=== PATIENT | female | born 1950 | race Caucasian/White ===

== ENCOUNTER 2023-02-20 07:40 | Outpatient (CLI) | payer MEDICARE ==
--- NOTE | 2023-02-20 14:35 | Ultrasound Report ---
PROCEDURE: Aorta Screening INDICATIONS: POST MENOPAUSAL, FAM HX OF HEART DISEASE TECHNIQUE: Real time scanning was performed of the aorta and iliac arteries, with image documentatio n. COMPARISON: None. FINDINGS: Aorta: Proximal aortic diameter measures 2.3 x 2.3 cm. Mid-aorta measures 2.1 x 2.1 cm. Distal aor tic diameter is 1.8 x 1.7 cm. Iliac arteries: Right common iliac artery measures 1.2 x 1.3 cm. Left common iliac artery measures 1.3 x 1.2 cm. IMPRESSION: No sonographic evidence for abdominal aortic aneurysm. Recommended intervals for follow-up imaging of ectatic aortas and abdominal aortic aneurysms, per ACR consensus guidelines: 2.5-2.9 cm: 5 years 3.0-3.4 cm: 3 years 3.5-3.9 cm: 2 years 4.0-4.4 cm: 1 year 4.5-4.9 cm: 6 months + endovascular referral 5.0-5.5 cm: 3-6 months + endovascular referral Reviewed by: Dirk Galan MD on 02/20/2023 2:33 PM PDT Approved by: Dirk Galan MD on 02/20/2023 2:33 PM PDT Station ID: [id number]
--- NOTE | 2023-02-20 18:14 | DEXA Report ---
PROCEDURE: Dexa Spine and/or Hip INDICATIONS: POST MENOPAUSAL, FAM HX OF HEART DISEASE TECHNIQUE: Dual energy x-ray absorptiometry (DEXA) was performed in the regions detailed below. COMPARISON: None. FINDINGS: Lumbar Spine: Bone Mineral Density 0.979 g/cm/cm,T score -1.7. Osteopenia Left Femoral Neck: Bone Mineral Density 0.911 g/cm/cm, T score -0.9. Normal Left Total Hip: Bone Mineral Density 0.893 g/cm/cm,T score -0.9. Normal (T score greater or equal to -1.0: NORMAL) (T score from -1.1 to -2.4: OSTEOPENIA) (T score less than or equal to -2.5 to: OSTEOPOROSIS) IMPRESSION: Osteopenia Patients with diagnosis of osteoporosis or osteopenia should have regular bone mineral density assess ment. For those eligible for Medicare, routine testing is allowed once every 2 years. Testing frequ ency can be increased for patients who have rapidly progressing disease or for those who are receivin g medical therapy to restore bone mass. Reviewed by: Gera Orosco MD on 02/20/2023 5:12 PM PORFIRIO Approved by: Gera Orosco MD on 02/20/2023 5:12 PM AKDT Station ID: [id number]
== END 2023-02-20 07:41 | disposition home or self-care (01) ==
LOC: DI 07:40
PROVIDERS: ATTEND Nurse Practitioner Family
DX: Z78.0 Asymptomatic menopausal state (principal); Z13.6 Encounter for screening for cardiovascular disorders; Z82.49 Family history of ischemic heart disease and other diseases of the circulatory system; M85.88 Other specified disorders of bone density and structure, other site

== ENCOUNTER 2023-02-20 07:41 | Outpatient (CLI) | payer MEDICARE ==
--- NOTE | 2023-02-25 15:05 | Mammography Report ---
BILATERAL DIGITAL SCREENING MAMMOGRAM 3D/2D: 02/20/2023 CLINICAL: Routine screening. Multiple family members with breast cancer. Comparison is made to exams dated: 12/09/2018 mammogram and 11/29/2019 mammogram - [facility]. Both breasts are heterogeneously dense, which may obscure small masses (category c / 51-75% glandular tissue). No significant masses, calcifications, or other findings are seen in either breast. There has been no significant interval change. IMPRESSION: NEGATIVE There is no mammographic evidence of malignancy. A 1 year screening mammogram is recommended. Based on the Tyrer Cuzick model (a risk assessment model) the patients lifetime risk is 18.0% and he r 10 year risk is 13.6%. According to the ACR, ACS, and NCCN guidelines, an annual breast MRI exam al soha with mammogram is recommended if the patients lifetime risk is 20% or greater. This exam was interpreted at Station ID: [id number]. NOTE: For mammograms, a report in lay terms will be sent to the patient. Approximately 15% of breast malignancies will not be visualized mammographically. In the management of a palpable breast mass, a negative mammogram must not discourage biopsy of a clinically suspicious lesion. Electronically Signed By: Josué whitmore/penrad:02/24/2023 15:05:20 ACR BI-RADS Category 1: Negative 3341F PARENCHYMAL PATTERN: (D) - The breast(s) demonstrate(s) heterogeneously dense fibroglandular mily max. BI-RADS CATEGORY: (1) - 1 Mammogram [id number] 1 year screening LATERALITY: (B)
== END 2023-02-20 07:42 | disposition home or self-care (01) ==
LOC: DI 07:41
PROVIDERS: ATTEND Nurse Practitioner Family
DX: Z12.31 Encounter for screening mammogram for malignant neoplasm of breast (principal); R92.333 Mammographic heterogeneous density, bilateral breasts; Z80.3 Family history of malignant neoplasm of breast

== ENCOUNTER 2023-12-09 09:29 | Day surgery (SDC) | payer MEDICARE ==
--- NOTE | 2023-12-09 06:34 | HISTORY & PHYSICAL EXAMINATION ---
PMH/PSH - Past Medical History Cardiovascular: positive: Hypertension, Atrial fibrillation, Arrhythmia Respiratory: positive: None Neuro: positive: None Endocrine/Autoimmune: positive: None GI: positive: None : positive: None HEENT: positive: None Psych: positive: None Musculoskeletal: positive: Osteoarthritis Derm: positive: None MRSA Hx?: No Social & Family Hx - Social History Smoking Status: Former smoker Meds/Allgy - Home Medications Home Medications: Ambulatory Orders Medication Instructions Recorded Confirmed Apixaban [Eliquis] 5 mg PO DAILY 10/04/21 12/09/23 Metoprolol Succinate [Kapspargo 50 mg PO DAILY 10/04/21 12/09/23 Sprinkle] - Allergies Allergies/Adverse Reactions: Allergies Allergy/AdvReac Type Severity Reaction Status Date / Time Penicillins Allergy Hives Verified 12/09/23 10:04 Impression/Plan - Problem List Problem List: Visit Type: Initial Consult CC: colonoscopy consult. History of Present Illness: 73 year old female referred to my office for screening CS exam. Her last examination was 10 years ago. She has a history of colon poyps. There is no FH of colon cancer. She is on Eliquis for a fib. She denies lower GI symptoms. Her mother had a total colectomy/ileostomy in her 90's due to "colitis". Mallampati Score Class I: The soft palate, tonsils, anterior and posterior pillars, and the entire uvula are easily visible ASA Physical Status Classification System ASA II: A patient with mild systemic disease Allergies: Allergies Reviewed: Done PENICILLIN V POTASSIUM (PENICILLIN V POTASSIUM) (Critical) Social History Reviewed: Done Medications: Meds Reviewed: Done Eliquis 5 mg tablet (apixaban) metoprolol succinate 50 mg tablet extended release 24 hr (metoprolol succinate) triazolam 0.25 mg tablet (triazolam) TAKE 1 TABLET BY MOUTH THE NIGHT BEFORE, AND 1 TABLET ONE HOUR BEFORE APPOINTMENT. NEED RIDE TO AND FROM APPOINTMENT. Problems: Problems Reviewed: Done Encounter for screening for malignant neoplasm of colon (ICD-V76.51) (ICD10- Z12.11) Family history of CVA or stroke (ICD-V17.1) (UFT86-E67.3) Carotid bruit, bilateral (ICD-785.9) (WPM30-P00.89) Establish care or get acquainted visit (ICD-V68.89) (DNC96-Q90.89) Past Medical History: Past Medical History was requested of patient but none was remarked. Past Surgical History: Unremarkable Risk Factors-CCC: Smoked Tobacco Use: Never smoker Smokeless Tobacco Use: Never Alcohol Use: yes Type: wine Drinks per day: 2 Review of Systems General Denies fever, anorexia and weight loss. GI Denies abdominal pain, nausea, vomiting, diarrhea, constipation, change in bowel habits, melena, hematochezia, jaundice, gas/bloating, indig estion/heartburn, dysphagia and odynophagia. Breast Denies left breast lump, right breast lump, nipple discharge, bloody discharge from nipple, breast pain, abnormal mammogram and breast enlargement. CV Denies chest pains, palpitations, syncope and peripheral edema. Resp Denies cough, shortness of breath, hemoptysis, wheezing and pleuritic chest pain. Vascular Denies varicose veins, leg swelling, leg redness, leg coolness, pain in legs with walking, resting leg pain, pain at night in legs and blue toe(s). Denies vaginal discharge, incontinence, dysuria, hematuria, urinary frequency, abnormal vaginal bleeding, pelvic pain and . Wound Denies wound redness, wound discharge, wound pain, opening of wound, purulent discharge and bleeding from wound. Derm Denies suspicious lesions, new skin lesions, changing mole(s), rash, itching and history of skin cancer. Neuro Denies paralysis, paresthesias, seizures and frequent headaches. Psych Denies depression, anxiety, memory loss, suicidal ideation, hallucinations, paranoia, phobia and confusion. Endo Denies cold intolerance, heat intolerance, polydipsia, polyphagia, polyuria and unusual weight change. Heme Denies abnormal bruising, bleeding and enlarged lymph nodes. MS Denies back pain, sciatica and arthritis. Other Denies stoma redness, pain around stoma, discharge from stoma, pain from venous catheter, redness at vascular access site and purulent drainage from vascular access site. Vital Signs: Patient Profile: 73 Years Old Female Height: 62 inches Weight: 212.0 pounds BMI: 38.92 O2 Sat: 98 % on room air Temp: 97.2 degrees F temporal Pulse rate: 70 / minute Resp: 16 per minute BP sittin / 90 Vitals Entered By: Cole Velásquez RN (October 20, 2023 1:59 PM) Problems were reviewed with the patient during this visit. Medications were reviewed with the patient during this visit. Allergies were reviewed with the patient during this visit. Allergies: PENICILLIN V POTASSIUM (PENICILLIN V POTASSIUM) (Critical) Physical Exam General: well developed, well nourished, in no acute distress Head: normocephalic and atraumatic Eyes: PERRLA/EOM intact; sclera clear Ears: Normal hearing Nose: no deformity, discharge, inflammation, or lesions Mouth: no deformity or lesions with good dentition Neck: no masses, thyromegaly, or abnormal cervical nodes Lungs: clear bilaterally to A & P Heart: regular rate and rhythm, S1, S2 without murmurs, rubs, gallops, or clicks Abdomen: bowel sounds positive; abdomen soft and non-tender without masses, organomegaly, or hernias noted Msk: no deformity or scoliosis noted with normal posture and gait Pulses: pulses normal in all 4 extremities Extremities: no clubbing, cyanosis, edema, or deformity noted with normal full range of motion of all joints Neurologic: no focal deficits Skin: intact without lesions or rashes Cervical Nodes: no significant adenopathy Psych: alert and cooperative; normal mood and affect; normal attention span and co ncentration Blood Pressure: Today's BP: 127/90 mmHg Impression & Recommendations: Problem # 1: Encounter for screening for malignant neoplasm of colon (ICD- V76.51) (OIU18-J44.11) Assessment: 1) Screening CS request Recommendation: 1) Colonoscopy under IV sedation Consent: Jamee has been counseled for the procedure, it's indications, risks, benefits and expected outcome as well as alternative therapies. We specifically discussed risks associated with anesthesia and insertion of the endoscope into the large intestine which includes bleeding and injury to the colon which may require surgical intervention. Jamee understands, agrees, and consents to the proposed operative strategy and requests that we proceed with the procedure as outlined in our discussion. Elder Mendenhall MD, [facility] General Surgery Service Orders: Visit Code Hold ([id number]) Other Orders: Visit Code Hold ([id number]) Date: 12/09/23; 10:30 Chart Update: Patient examined, chart reviewed. There are no changes to the patient's clinical status that would preclude proceeding with the scheduled procedure today. Elder Mendenhall MD, [facility] General Surgery Service
[2023-12-09] MEDS: LACTATED RINGERS 1,000 ML IV ONE ×2 (09:40→11:40)
--- NOTE | 2023-12-09 10:37 | ANESTHESIA ---
Pre-Anesthesia VS, & Labs - Diagnosis screening - Procedure colonoscopy Height: 5 ft 2 in Weight (kg): 95.6 kg Body Mass Index: 38.5 BMI Classification: Obese - NPO >8 hours - Is Patient ?: No Home Medications and Allergies Apixaban [Eliquis] 5 mg PO DAILY 10/04/21 Metoprolol Succinate [Kapspargo Sprinkle] 50 mg PO DAILY 10/04/21 Allergies/Adverse Reactions: Allergies Allergy/AdvReac Type Severity Reaction Status Date / Time Penicillins Allergy Hives Verified 12/09/23 10:04 Anes History & Medical History - Anesthetic History Anesthesia Complications: reports: No previous complications Family history of Anesthesia Complications: Denies Family history of Malignant Hyperthermia: Denies - Medical History Cardiovascular: reports: Hypertension, Atrial fibrillation, Arrhythmia Pulmonary: reports: None Gastrointestinal: reports: None Urinary: reports: None Neuro: reports: None Musculoskeletal: reports: Osteoarthritis Endocrine/Autoimmune: reports: None Skin: reports: None Smoking Status: Former smoker - Surgical History General: reports: Cholecystectomy Eyes Ears Nose Throat (EENT): reports: Cataracts Exam General: Alert, Oriented x3, Cooperative Dental: WNL Mouth Openin Fingerbreadth Neck Mobility: Normal Mallampati classification: II Thyromental Distance: 4-6 cm Respiratory: Lungs clear Cardiovascular: Regular rate Plan Anesthesia Type: Total IV Consent for Procedure(s) Verified and Reviewed: Yes Code Status: Attempt Resuscitation ASA classification: 2-Mild systemic disease Is this case an emergency?: No
[2023-12-09] MEDS ORDERED: LIDOCAINE-PF 2% 10 ML AMP SUBQ ONE (10:59)
[2023-12-09] MEDS ORDERED: PROPOFOL 200 MG/20 ML VIAL IVP ONE (10:59)
[2023-12-09] MEDS ORDERED: PROPOFOL 500 MG/50 ML 500 MG/50 ML VIAL ONE (11:31)
[2023-12-09 12:13] VITALS: BP 134/92; O2SAT 100
--- NOTE | 2023-12-09 14:08 | ANESTHESIA POST OP EVALUATION ---
Anesthesia Post Eval - Post Anesthesia Eval Vitals: Last Vital Signs Temp 36.0 C L 12/09/23 11:40 Pulse 89 12/09/23 12:35 Resp 16 12/09/23 12:35 BP 134/92 H 12/09/23 12:35 Pulse Ox 100 12/09/23 12:35 O2 Flow Rate CV Function Including HR & BP: Stable Pain Control: Satisfactory Nausea & Vomiting: Negative Mental Status: Baseline Respiratory Status: Airway Patent Hydration Status: Satisfactory Anesthesia Complications: None
== END 2023-12-09 09:30 | disposition home or self-care (01) ==
LOC: SDS 09:29
PROVIDERS: ATTEND Surgery
PROC: 0DBP8ZZ Excision of Rectum, Via Natural or Artificial Opening Endoscopic (ICD-10-PCS; principal; 2023-12-09 10:45)
DX: Z12.11 Encounter for screening for malignant neoplasm of colon (principal); K62.1 Rectal polyp; I48.91 Unspecified atrial fibrillation; Z79.01 Long term (current) use of anticoagulants; Z87.891 Personal history of nicotine dependence; E66.9 Obesity, unspecified; Z68.38 Body mass index [BMI] 38.0-38.9, adult
CPT/HCPCS: 45380; J7120